=== PATIENT | male | born 1960 | race Caucasian/White ===

== ENCOUNTER 2016-06-18 21:44 | Emergency (ER) | payer SELFPAY ==
[~2016-06-18] VITALS: Ht 185.4 cm; Wt 122.9 kg
[2016-06-18 22:14] VITALS: BP 141/91; PULSE 87; RESP 22; TEMP 98.7; O2SAT 94
[2016-06-19 00:26] VITALS: BP 141/90; PULSE 87; RESP 18; TEMP 98.7; O2SAT 94
[2016-06-19] MEDS ORDERED: AMLO2.5T PO (00:35)
[2016-06-19] MEDS ORDERED: OXYC80TA9 PO (00:35)
[2016-06-19] MEDS ORDERED: OXYC30TA PO (00:35)
--- NOTE | 2016-06-19 00:49 | RADHPO ---
EXAM DATE/TIME: 06/19/2016 00:19 [place] COMPARISON: No previous studies available for comparison. INDICATIONS : Right shoulder pain when raising arm from unknown injury. MEDICAL HISTORY : None. SURGICAL HISTORY : None. ENCOUNTER: Initial ACUITY: 1 day PAIN SCORE: 7/10 LOCATION: Right proximal shoulder FINDINGS: Multiple view examination of the right shoulder demonstrates no evidence of fracture or dislocation. The glenohumeral and acromioclavicular joints are maintained. There is normal range of motion betwe en internal and external rotation. Bony mineralization is normal. CONCLUSION: Unremarkable examination of the right shoulder. Rodríguez Jacobo Jr., MD on June 19, 2016 at 0:47 Board Certified Radiologist. This report was verified electronically.
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
[2016-06-19 02:13] VITALS: BP 138/92
== END 2016-06-19 02:14 | disposition home or self-care (01) ==
LOC: PHED 21:44 → PHEFT 06-19 02:14
DX: S49.91XA Unspecified injury of right shoulder and upper arm, initial encounter (principal); S46.001A Unspecified injury of muscle(s) and tendon(s) of the rotator cuff of right shoulder, initial encounter; I10 Essential (primary) hypertension; W50.0XXA Accidental hit or strike by another person, initial encounter; Y93.9 Activity, unspecified; Y92.9 Unspecified place or not applicable
CPT/HCPCS: 73030; 99283